=== PATIENT | female | born 1980 | race Caucasian/White ===

== ENCOUNTER → 2017-03-07 | Outpatient (CLI) | payer OTHER ==
[~2017-03-07] MED LIST: DIGO0.2518 PO; DPPI400 SQ; OPTIRAY 320 IV PRN; TRAM-10 PO
--- NOTE | 2017-03-07 08:50 | DIAGNOSTIC IMAGING REPORT ---
CT ABD/PELVIS IV AND ORAL CONT CLINICAL HISTORY: ABD PAIN,NAUSEA COMPARISON STUDY: None. TECHNIQUE: Following the IV administration of 93 mL of Optiray-320, CT scan of the abdomen and pelvis was performed from the lung bases to the proximal femurs. Images are reviewed in the axial, sagittal, and coronal planes. IV contrast was administered without complication. A dose lowering technique was utilized adhering to the principles of ALARA. CT DOSE: 384.39 mGycm FINDINGS: Lower chest: The heart is normal in size and configuration, without pericardial effusion. The lung bases and pleural spaces are clear. Liver: The contrast-enhanced liver is normal in size, contour, and attenuation. There is no intrahepatic biliary ductal dilatation. The hepatic veins and portal veins are patent. Gallbladder: Surgically absent Spleen: Normal in size and attenuation. Pancreas: Unremarkable. Adrenal glands: Unremarkable. Kidneys: There is symmetric renal cortical enhancement. The kidneys are normal in size without hydronephrosis. Bowel: There are no transition zones to indicate bowel obstruction. The appendix is surgically absent. There is no acute diverticulitis. There is moderate fecal retention. Peritoneum: There is no intraperitoneal free air or abdominal ascites. Vasculature: The abdominal aorta is normal in course and caliber. Adenopathy: None. Pelvic viscera: The uterus appears surgically absent. There are right ovarian follicles measuring up to 24 mm in diameter. Skeletal structures: No destructive osseous lesions are seen. There are areas of calcification/ossification within the upper sacral spinal canal. IMPRESSION: 1. Surgically absent gallbladder, appendix and uterus 2. No evidence of bowel obstruction. No evidence of free air 3. Fecal retention 4. No acute inflammatory changes identified Electronically signed by: Uche Brice M.D. 03/07/2017 8:49 AM Dictated Date/Time: 03/07/2017 8:44 AM
== END | disposition home or self-care (01) ==
LOC: C.CTS 08:12
PROVIDERS: ATTEND Internal Medicine
DX: R10.84 Generalized abdominal pain (principal); K59.00 Constipation, unspecified; Z90.49 Acquired absence of other specified parts of digestive tract; Z90.89 Acquired absence of other organs; Z90.711 Acquired absence of uterus with remaining cervical stump